=== PATIENT | female | born 1940 | race Caucasian/White ===

== ENCOUNTER 2016-07-02 16:05 | Emergency (ER) | payer MEDICARE ==
[2016-07-02 17:09] VITALS: TEMP 98; BMI 26.6
[2016-07-02 17:47] VITALS: BP 152/67; PULSE 69
--- NOTE | 2016-07-02 18:00 | EDPRACDOC ---
- General Information Chief Complaint: Bite Stated Complaint: NEEDS RABIES VACCINE Time Seen by Provider: 07/02/16 17:46 Information Source: Patient Mode Of Arrival: Car Home Medications: Home Medications Aspirin [Aspirin, Chewable] 81 mg PO QHS 07/26/12 Losartan Potassium [Cozaar] 50 mg PO DAILY 03/23/13 Metoprolol Succinate [Toprol Xl] 25 mg PO HS 03/23/13 CYANOCOBALAMIN (Vitamin B-12) [Vitamin B-12 (cyanocobalamin)] 1,000 mcg IM .MONTHLY 03/01/14 Cholecalciferol (Vitamin D3) [Vitamin D] 2,000 unit PO DAILY 03/01/14 Gelatin 650 mg PO DAILY 03/01/14 Lactobacillus Acidophilus [Acidophilus] 1 each PO DAILY 03/01/14 Sodium Chloride (NaCl) [Volusia Mist] 100 spr ELVIS Q2H PRN 03/01/14 Vitamin B Complex 2 each PO DAILY 03/01/14 Cyruta Otc Supplement For Eye Health 1 tab PO DAILY 07/15/15 Pomegranate Fruit Extract [Pomegranate] 250 mg PO QHS 07/15/15 Red Yeast Rice 600 mg PO QHS 07/15/15 Allergies/Adverse Reactions: Allergies Allergy/AdvReac Type Severity Reaction Status Date / Time erythromycin base Allergy Unknown UNKNOWN Verified 07/02/16 17:08 [Erythromycin Base] latex [Latex] Allergy Unknown Rash-Genera Verified 07/02/16 17:08 lized - History of Present Illness Onset: 3 DAYS HPI: PT STATES THAT SHE SAW A BAT IN HER HOUSE ON TUESDAY NIGHT, PT HAD BAT EXPOSURE IN DECEMBER OF LAST YEAR AND RECEIVED FULL RABIES SERIES AND IMMUNE GLOBULIN AT THAT TIME. PT STATES THAT SHE CALLED THE HEALTH DEPT AND THEY ADVISED HER THAT SHE NEEDED TO REPEAT THE VACCINE TODAY AND ON TUESDAY. Bite Location: Reports: Other (UNKNOWN IF ACTUALLY BITTEN) Bite Cause: Unknown (POSSIBLE BAT EXPOSURE) Symptoms: Reports: None Bite Wound: Reports: None Animal Immunization Status: N\A Pain Severity: None Shortness of Breath: None Pruritus Severity: None Last Tetanus: Yes Associated signs and symptoms: Denies: Chills, Bullae, Dizziness, Fever, Fasciculations, Hematemesis, Nausea, Hematuria, Pus, Numbness, Vomiting, Weakness, Swelling, Redness, Other ED Past Medical History - History Reviewed Yes Nurses notes reviewed and agree except as marked - Patient Medical History Neurological History: Reports: Cerebrovascular Accident (WITH MINIMAL LEFT SIDED WEAKNESS) Cardiac History: Reports: Hypertension, Hypercholesterolemia Respiratory History: Denies: Pneumonia GI/ History: Reports: Urinary Tract Infection, Kidney Stones Musculoskeletal History: Reports: Osteoarthritis Psychological History: Reports: Anxiety. Denies: Depression Systemic History: Reports: Cancer, Anemia Surgical History: Reports: Hernia Surgery (umbilical - Dr Michelle) - Family Medical History Reports: Hypertension (dad), Diabetes (dad), Cancer (pgm - female cancer-unsure of type), Cardiac Disorders (dad- [place], brother- pacemaker). Denies: Stroke - Social Medical History Smoking Status: Never smoker ETOH: None Substance Abuse: None EDM Review of Systems - Review of Systems Constitutional: negative: Chills, Fever Eyes: negative: Blurred Vision, Double Vision Ears: negative: Drainage, Pain Throat: negative: Pain Nose: negative: Congestion, Discharge Respiratory: negative: Cough Cardiovascular: negative: Chest Pain Gastrointestinal: negative: Nausea, Vomiting Neurological: negative: Dizziness, Headache Musculoskeletal: No Symptoms Reported Integumentary: No Symptoms Reported - Physical Exam Constitutional: Alert (Awake), No apparent distress Oriented to: Time, Person, Place Last recorded Vital Signs: Last Vital Signs Temp 98 F 07/02/16 17:04 Pulse 69 07/02/16 17:46 Resp 20 07/02/16 17:46 BP 152/67 07/02/16 17:46 Pulse Ox 93 07/02/16 17:46 Oxygen Pulse Oxygen Saturation 93 O2 Device Room Air Oxygen Flow Rate Fraction of Inspired Oxygen ( FIO2) - HEENT Head: Normal ( normocephalic) - Respiratory/Cardiovascular Respiratory: Normal - CTA (BBS clear to auscultation without adventitious sounds ) Cardiovascular: Normal (RRR without murmur, gallop or rub) - Integumentary Skin: Normal, Warm, Dry Lymphatics: Normal (no adenopathy) - Neurologic Memory Impaired: Normal Motor Function: Normal (Normal tone, Pulses 2+ No cyanosis or edema, FROM) Cranial Nerve: Normal (CN II-X11 intact sensation, strength 5/5) Cerebellar: Normal Mood Description: Normal Perception: Normal - Differential Diagnosis Other (RABIES EXPOSURE) Decision Time to Discharge: 18:01 - Departure Disposition: Home Condition: Stable Final Diagnosis: Exposure to bat without known bite Instructions: Rabies Vaccine (By injection) Education/Counseling Given To: Patient Education/Counseling Given Regarding: Diagnosis, Treatment, Prognosis, Follow Up Referrals: Shante Montaño MD [Primary Care Provider] - One Week Additional Instructions: RETURN ON TUESDAY TO COMPLETE RABIES VACCINE.
[2016-07-02] MEDS ORDERED: RABIES VACCINE 2.5 UNIT IM ONE (18:30)
== END 2016-07-02 18:48 | disposition home or self-care (01) ==
LOC: EDMC 16:05
DX: Z20.3 Contact with and (suspected) exposure to rabies (principal); Z23 Encounter for immunization
CPT/HCPCS: 90471; 90675; 99282